=== PATIENT | female | born 1980 | race Caucasian/White ===

== ENCOUNTER → 2017-07-14 | Outpatient (CLI) | payer OTHER ==
[~2017-07-14] MED LIST: ACE3 PO; CETI10CA8 PO; DESO1TAB41 PO; KET10 PO; OMEP-218 PO; PREN-127 PO; VIT1CAPS11 PO
== END ==
LOC: LAB 11:34
PROVIDERS: ATTEND Obstetrics & Gynecology
DX: O09.513 Supervision of elderly primigravida, third trimester (principal)
CPT/HCPCS: 87081

== ENCOUNTER → 2017-07-27 | Outpatient (CLI) | payer OTHER ==
[~2017-07-27] MED LIST changes: +IBUP800T37 PO; +LOR5/325 PO
--- NOTE | 2017-07-27 21:02 | RADIOLOGY IMAGING REPORT ---
FACILITY: [facility] PATIENT NAME: Dayna Resendez : 1980 MR: [id number] V: [id number] EXAM DATE: ORDERING PHYSICIAN: EMMANUELLE ROWAN TECHNOLOGIST: [place] [facility] [place] Dayna Resendez : 1980 Visit/Account:[id number] Date of Sevice: 07/27/2017 EXAMINATION: Limited Transabdominal OB Ultrasound >14 wks Without Full Anatomic Survey 07/27/2017 3:57 PM HISTORY: Size less than dates, gestational hypertension vs preE COMPARISON: None available FINDINGS: Intrauterine gestations: one presentation: vertex heart rate: heart rate was not documented. Amniotic fluid index: 13.3 cm Largest amniotic fluid pocket 5.0 cm Placenta: Posterior without previa Uterus: gravid, otherwise normal Maternal adnexa: Not imaged Cervix: Grossly closed but not well seen. Transvaginal imaging was not done. Gestational Parameters: BPD: 9.6 cm 39 weeks 1 day HC: 34.3 cm 39 weeks 5 days AC: 34.4 cm 38 weeks 2 days FL: 7.6 cm 38 weeks 6 days Average ultrasound age (AUA): 39 weeks 0 days Estimated gestational age by LMP: 39 weeks 2 days Estimated weight (EFW): 3547 grams +/- 518 grams EFW for LMP percentile: 55 Anatomic Survey: Anatomic survey was not performed. IMPRESSION: 1. Single viable IUP in vertex presentation. EGA by ultrasound is 39 weeks 0 days (OLIVER 08/03/2017) whi ch correlates within 2 days of expected clinical dates. 2. heart rate was not documented although cardiac activity is noted by the technologist. If desired, we would be happy to provide addendum imaging to document heart rate. Report Dictated By: Oneal Barker MD at 07/27/2017 8:54 PM Report E-Signed By: Oneal Barker MD at 07/27/2017 8:58 PM WSN:[id number]
== END ==
LOC: RAD 15:49
PROVIDERS: ATTEND Obstetrics & Gynecology
DX: Z02.9 Encounter for administrative examinations, unspecified (principal)
CPT/HCPCS: 76815

== ENCOUNTER → 2017-07-27 | Outpatient (CLI) | payer OTHER ==
[~2017-07-27] MED LIST changes: -IBUP800T37 PO; -LOR5/325 PO
== END ==
LOC: LAB 15:25
PROVIDERS: ATTEND Obstetrics & Gynecology
DX: O16.3 Unspecified maternal hypertension, third trimester (principal)
CPT/HCPCS: 82570; 84156

== ENCOUNTER 2017-07-28 09:36 | Inpatient (IN) | payer OTHER ==
[~2017-07-28] VITALS: Ht 142.2 cm; Wt 73.5 kg
[~2017-07-28 09:36] MED LIST changes: -LOR5/325 PO
[2017-07-28] MEDS ORDERED: ceFAZolin(*) 2GM/D5W 50ML 50 ML IVPB PRN (09:49)
[2017-07-28] MEDS ORDERED: FAMOTIDINE(*) 20MG/50ML PREMIX 50 ML IVPB PRN (09:49)
[2017-07-28] MEDS ORDERED: FLUSH 10 ML SYR IVP PRN (09:50)
[2017-07-28] MEDS ORDERED: fentaNYL CITR 100 MCG/2 ML AMP IVP PRN (09:50)
[2017-07-28] MEDS ORDERED: LIDOCAINE 1% LOCAL 300 MG/30ML INJ PRN (09:50)
[2017-07-28] MEDS ORDERED: TERBUTALINE SULF 1 MG/ML VIAL SUBQ PRN (09:50)
[2017-07-28] MEDS ORDERED: BUPIVACAINE 0.5% INJ 30ML VIAL EPI PRN (10:00)
[2017-07-28] MEDS ORDERED: LIDO/EPI 2% MPF 1:200,000 20ML EPI PRN (10:00)
[2017-07-28] MEDS ORDERED: FENTANYL/ROPIVACAINE 100 ML BAG EPI PRN (10:00)
[2017-07-28] MEDS ORDERED: fentaNYL CITR 100 MCG/2 ML AMP IT PRN (10:00)
[2017-07-28] MEDS ORDERED: LIDOCAINE/PF 2% 200MG/10ML AMP 200 MG/10 ML AMPUL EPI PRN (10:00)
[2017-07-28] MEDS ORDERED: BUPIVACAINE 0.25% MPF INJ EPI PRN (10:00)
[2017-07-28] MEDS ORDERED: ePHEDrine 25 MG/5 ML DISP.SYR IVP PRN (10:00)
[2017-07-28 10:35] VITALS: BP 123/76; Ht 142.2 cm; Wt 73.5 kg
[2017-07-28] MEDS: MISOPROSTOL 25 MCG CAP PV PRN ×2 (10:49→15:15)
[2017-07-28 10:50] LABS: PLATELET COUNT, AUTOMATED 175 K/uL (150-450)
--- NOTE | 2017-07-28 13:08 | History & Physical ---
History of Present Illness EDC per LMP: Aug 01, 2017 Estimated Gestational Age: 39.3 Chief Complaint Induction for preeclampsia History of Present Illness 37-year-old at 39w3d presents for induction of labor due to preeclampsia without severe features. She denies any preeclampsia symptoms. She developed elevated blood pressure yesterday, and this is confirmed this morning. She is therefore admitted for induction of labor with cervical ripening. Her care is by IMG. She is otherwise c/b AMA, uterine fibroid and Rh negative. She is GBS negative. History Patient's Blood Type: O Negative Rubella Status: Immune Group B Strep Screen: Negative Obstetrical History: Primip Past Medical History: PMH: Eosinophilic esophagitis PSH: [place] tooth,endoscopy x 5, umbilical hernia repair Allergies: Uncoded Allergies: HAYFEVER (Allergy, Unknown, 07/14/17) Social History: No T/E/D. . Family History: FH: arrhythmia FATHER, Age:69 FH: cleft lip BROTHER OR SISTER Hypoglycemia MOTHER, Age:74 Med Rec Home Meds Reported Medications Vit A & D3 In Cod Liver Oil (COD LIVER OIL SOFTGEL) 1 Each Capsule, 1 EACH PO, CAPSULE 07/14/17 Cetirizine Hcl (ZYRTEC) 10 Mg Capsule, 10 MG PO QDAY, CAPSULE 07/14/17 Vits W-Ca,Fe,Fa(<1MG) ( VITAMINS) 1 Each Tablet, 1 EACH PO DAILY, TAB 07/14/17 Review of Systems Constitutional: No Fever Neurological: No Syncope Eyes: No Vision Change Cardiovascular: No Chest Pain Respiratory: No Shortness of Breath, No Cough Gastrointestinal: No Nausea, No Vomiting, No Diarrhea Genitourinary: No Dysuria Musculoskeletal: No Pain Psychiatric: No Depression, No Anxiety Exam General Exam Vital Signs Vital Signs Date Time Temp Pulse Resp B/P (MAP) Pulse Ox O2 Delivery O2 Flow Rate FiO2 07/28/17 10:35 98.6 74 18 123/76 (92) General Apperance: Alert/Awake/No Acute Distress Neuro: No Gross deficits Eyes: Normal Extraocular Movement & Vison Cardiovascular: Regular Rate and Rhythm Respiratory: No Respiratory Distress, Clear to Auscultation Abdomen: Gravid - Non-Tender : Normal Musculoskeletal: No Weakness/Pain Extremities: No Cyanosis,Clubbing or Edema Integumentary: Skin Intact without Lesions or Rash Psychological: Alert & Oriented X3, Appropriate Mood & Affect Cervical Dialation: 0 Cervical Effacement (%): 75 Cervical Consistency: Firm Cervical Position: Posterior Station: 0 Presentation: Vertex Uterine Contractions(Q min): 0 Fetus FHT Category: I Medical Decision Making Data Points Result Diagram: 07/28/17 1040 07/28/17 1040 Pre-Admit Course Medical Record Review: Yes VTE Prophylasis: Adult Deep Vein Thrombosis/Pulmonary: No Pharmacological Contraindicati: Pt at Low Risk for VTE Mechanical Contraindications: Pt at Low Risk for VTE Assessment and Plan Problems: (1) Preeclampsia Assessment & Plan: No severe features, but diagnosed by Pr:Cr = 0.5 which is much elevated compared to yesterday. Cytotec ripening. (2) Rh negative status during Assessment & Plan: PP evaluation. Problem Qualifiers (1) Preeclampsia: Trimester: third trimester Qualified Codes: O14.93 - Unspecified pre- eclampsia, third trimester (2) Rh negative status during : Trimester: third trimester Qualified Codes: O09.893 - Supervision of other high risk pregnancies, third trimester; Z67.91 - Unspecified blood type, rh negative EMMANUELLE ROWAN MD Jul 28, 2017 13:08
[2017-07-28] MEDS ORDERED: EPIDURAL KEYS XX PRN (16:00)
--- NOTE | 2017-07-28 16:12 | Labor Progress Note ---
Labor Subjective Progress Notes Subjective Pt is sleeping soundly right now. Wasn't feeling much for contractions all day. Labor Objective Vital Signs Vital Signs Date Time Temp Pulse Resp B/P (MAP) Pulse Ox O2 Delivery O2 Flow Rate FiO2 07/28/17 10:35 98.6 74 18 123/76 (92) Cervical Dialation: 0 Cervical Effacement (%): 75 Cervical Consistency: Moderate Cervical Position: Posterior Station: 0 Presentation: Vertex Uterine Contractions(Q min): 0 Fetus FHT Category: I General Exam General Appearance: Other (Asleep) Other Result Diagram: 07/28/17 1040 07/28/17 1040 Assessment and Plan Problems: (1) Preeclampsia Assessment & Plan: BP is stable. She has received her second dose of vaginal cytotec. Plan to evaluate and consider lopes bulb versus pitocin after this dose. (2) Rh negative status during Assessment & Plan: PP evaluation. Problem Qualifiers (1) Preeclampsia: Trimester: third trimester Qualified Codes: O14.93 - Unspecified pre- eclampsia, third trimester (2) Rh negative status during : Trimester: third trimester Qualified Codes: O09.893 - Supervision of other high risk pregnancies, third trimester; Z67.91 - Unspecified blood type, rh negative EMMANUELLE ROWNA MD Jul 28, 2017 16:12
[2017-07-28] MEDS ORDERED: OXYTOCIN 30 UNIT/D5LR 500 ML 500 ML IV PRN (19:21)
[2017-07-28] MEDS ORDERED: CALCIUM CARBONATE 500 MG CHEW PO PRN (19:25)
--- NOTE | 2017-07-28 19:30 | Labor Progress Note ---
Labor Subjective Progress Notes Subjective Pt is relatively comfortable. Only occasional cramping. Labor Objective Vital Signs Vital Signs Date Time Temp Pulse Resp B/P (MAP) Pulse Ox O2 Delivery O2 Flow Rate FiO2 07/28/17 10:35 98.6 74 18 123/76 (92) Cervical Dialation: 1 Cervical Effacement (%): 75 Cervical Consistency: Moderate Cervical Position: Posterior Station: 0 Presentation: Vertex Uterine Contractions(Q min): 4 Uterine Contraction Strength: Mild UC Resting Tone: Soft Fetus FHT Category: I General Exam General Appearance: Alert/Awake/No Acute Distress Respiratory: No Respiratory Distress : Normal Extremities: No Cyanosis,Clubbing or Edema Integumentary: Skin Intact without Lesions or Rash Psychological: Alert & Oriented X3, Appropriate Mood & Affect Other Result Diagram: 07/28/17 1040 07/28/17 1040 Assessment and Plan Problems: (1) Preeclampsia Assessment & Plan: Pt is still not very favorable, but has received two doses of misoprostol. Will transition to low dose pitocin and re-evaluate in 4 hours. (2) Rh negative status during Assessment & Plan: PP evaluation. Problem Qualifiers (1) Preeclampsia: Trimester: third trimester Qualified Codes: O14.93 - Unspecified pre- eclampsia, third trimester (2) Rh negative status during : Trimester: third trimester Qualified Codes: O09.893 - Supervision of other high risk pregnancies, third trimester; Z67.91 - Unspecified blood type, rh negative EMMANUELLE ROWAN MD Jul 28, 2017 19:30
[2017-07-28] MEDS: OXYTOCIN 30 UNIT/D5LR 500 ML 500 ML IV PRN (19:53)
[2017-07-28] MEDS: LR(*) 1000 ML BAG 1,000 ML IV SCH (19:55)
[2017-07-29] MEDS: LR(*) 1000 ML BAG 1,000 ML IV SCH ×2 (00:43→16:09)
--- NOTE | 2017-07-29 05:05 | Labor Progress Note ---
Labor Subjective Progress Notes Subjective Pt is doing well. Some rest overnight. She felt off and on contractions. +FM. Labor Objective Vital Signs Vital Signs Date Time Temp Pulse Resp B/P (MAP) Pulse Ox O2 Delivery O2 Flow Rate FiO2 07/28/17 10:35 98.6 74 18 123/76 (92) Cervical Dialation: 2 Cervical Effacement (%): 70 Cervical Consistency: Soft Cervical Position: Posterior Station: 0 Presentation: Vertex Uterine Contractions(Q min): 5 Uterine Contraction Strength: Mild UC Resting Tone: Soft Fetus FHT Category: I (She had two runs of decelerations overnight (one at 2100 due to tachysystole, one at midnight with increased pitocin)) General Exam General Appearance: Alert/Awake/No Acute Distress Respiratory: No Respiratory Distress Abdomen: Gravid - Non-Tender : Normal Musculoskeletal: No Weakness/Pain Extremities: No Cyanosis,Clubbing or Edema Integumentary: Skin Intact without Lesions or Rash Psychological: Alert & Oriented X3, Appropriate Mood & Affect Other Result Diagram: 07/28/17 1040 07/28/17 1040 Assessment and Plan Problems: (1) Preeclampsia Assessment & Plan: Courtney score is 7. I would prefer to have her cervix more mid position prior to initiating induction with higher dose pitocin. Membrane stripping performed with attempt to do some manual stretching of the cervix. The patient tolerated this well. Will stop pitocin for 4 hours to let receptors rest and to see what response we get from membrane stripping. Will re -evaluate and hopefully initiate pitocin protocol for induction at that time. In the meantime, she will ambulate and get some fresh air. We discussed the two episodes of decelerations, which were late decelerations. We discussed the implications of seeing these early on. Will monitor very closely once we start the pitocin again. (2) Rh negative status during Problem Qualifiers (1) Preeclampsia: Trimester: third trimester Qualified Codes: O14.93 - Unspecified pre- eclampsia, third trimester (2) Rh negative status during : Trimester: third trimester Qualified Codes: O09.893 - Supervision of other high risk pregnancies, third trimester; Z67.91 - Unspecified blood type, rh negative EMMANUELLE ROWAN MD Jul 29, 2017 05:05
--- NOTE | 2017-07-29 09:41 | Labor Progress Note ---
Labor Subjective Progress Notes Subjective Pt is rarely feeling UCx without pitocin. +FM. No preeclampsia symptoms. Labor Objective Vital Signs Vital Signs Date Time Temp Pulse Resp B/P (MAP) Pulse Ox O2 Delivery O2 Flow Rate FiO2 07/28/17 10:35 98.6 74 18 123/76 (92) Cervical Dialation: 2 Cervical Effacement (%): 70 Cervical Consistency: Soft Cervical Position: Posterior Station: 0 Presentation: Vertex Uterine Contractions(Q min): 10 Fetus FHT Category: I General Exam General Appearance: Alert/Awake/No Acute Distress Respiratory: No Respiratory Distress Abdomen: Gravid - Non-Tender : Normal Musculoskeletal: No Weakness/Pain Extremities: No Cyanosis,Clubbing or Edema Integumentary: Skin Intact without Lesions or Rash Psychological: Alert & Oriented X3, Appropriate Mood & Affect Other Result Diagram: 07/29/1735 07/29/1735 Assessment and Plan Problems: (1) Preeclampsia Assessment & Plan: Courtney score is 7. I would prefer to have her cervix more mid position prior to initiating induction with higher dose pitocin. Membrane stripping performed with attempt to do some manual stretching of the cervix. No significant change since that time. Will restart low-dose pitocin and re- evaluate in 4 hours. (2) Rh negative status during Assessment & Plan: Rhophylac evaluation PP. Problem Qualifiers (1) Preeclampsia: Trimester: third trimester Qualified Codes: O14.93 - Unspecified pre- eclampsia, third trimester (2) Rh negative status during : Trimester: third trimester Qualified Codes: O09.893 - Supervision of other high risk pregnancies, third trimester; Z67.91 - Unspecified blood type, rh negative EMMANUELLE ROWAN MD Jul 29, 2017 09:41
[2017-07-29] MEDS ORDERED: OXYTOCIN 30 UNIT/D5LR 500 ML 500 ML IV PRN (13:55)
--- NOTE | 2017-07-29 19:40 | Labor Progress Note ---
Labor Subjective Progress Notes Subjective Pt is feeling more pain with contractions. +FM but decreased recently. No preeclampsia symptoms. Labor Objective Vital Signs Vital Signs Date Time Temp Pulse Resp B/P (MAP) Pulse Ox O2 Delivery O2 Flow Rate FiO2 07/28/17 10:35 98.6 74 18 123/76 (92) Cervical Dialation: 2 Cervical Effacement (%): 75 Cervical Consistency: Moderate Cervical Position: Posterior Station: 0 Presentation: Vertex Uterine Contractions(Q min): 3 Uterine Contraction Strength: Moderate UC Resting Tone: Soft Fetus FHT Category: I (Runs of decreased variability) General Exam General Appearance: Alert/Awake/No Acute Distress Respiratory: No Respiratory Distress Abdomen: Gravid - Non-Tender : Normal Extremities: No Cyanosis,Clubbing or Edema Integumentary: Skin Intact without Lesions or Rash Psychological: Alert & Oriented X3, Appropriate Mood & Affect Other Result Diagram: 07/29/1735 07/29/1735 Assessment and Plan Problems: (1) Preeclampsia Assessment & Plan: Still minimal progress with cervical change. Refuses lopes bulb at this time. Will continue with pitocin as is. Plan to stop for a break from 2300 to the AM. Will recheck labs in the AM and go from there. If worsening status, will plan delivery. Discussed indications and expectations for this. (2) Rh negative status during Assessment & Plan: Rhophylac evaluation PP. Problem Qualifiers (1) Preeclampsia: Trimester: third trimester Qualified Codes: O14.93 - Unspecified pre- eclampsia, third trimester (2) Rh negative status during : Trimester: third trimester Qualified Codes: O09.893 - Supervision of other high risk pregnancies, third trimester; Z67.91 - Unspecified blood type, rh negative EMMANUELLE ROWAN MD Jul 29, 2017 19:40
[2017-07-30] MEDS: LR(*) 1000 ML BAG 1,000 ML IV SCH ×3 (00:50→13:25)
[2017-07-30] MEDS ORDERED: OXYTOCIN 30 UNIT/D5LR 500 ML 500 ML IV PRN ×2 (05:00→05:44)
[2017-07-30] MEDS: OXYTOCIN 30 UNIT/D5LR 500 ML 500 ML IV PRN (05:07)
--- NOTE | 2017-07-30 07:30 | Labor Progress Note ---
Labor Subjective Progress Notes Subjective Rested overnight after SROM occurred. Contractions stopped with pitocin stopped. +FM. No preeclampsia symptoms. Labor Objective Vital Signs Vital Signs Date Time Temp Pulse Resp B/P (MAP) Pulse Ox O2 Delivery O2 Flow Rate FiO2 07/28/17 10:35 98.6 74 18 123/76 (92) Cervical Dialation: 2 Cervical Effacement (%): 80 Cervical Consistency: Moderate Cervical Position: Posterior Station: 0 Presentation: Vertex Uterine Contractions(Q min): 6 Uterine Contraction Strength: Mild UC Resting Tone: Soft Fetus FHT Category: I General Exam General Appearance: Alert/Awake/No Acute Distress Respiratory: No Respiratory Distress Abdomen: Gravid - Non-Tender : Normal Musculoskeletal: No Weakness/Pain Extremities: No Cyanosis,Clubbing or Edema Integumentary: Skin Intact without Lesions or Rash Psychological: Alert & Oriented X3, Appropriate Mood & Affect Other Result Diagram: 07/30/17 0503 07/30/17 0503 Assessment and Plan Problems: (1) Preeclampsia Assessment & Plan: Pt is more favorable, in that the cervix is closer to mid position than before. It has also effaced somewhat. She SROM'd at 2300hrs last night. Will now initiate pitocin per protocol for induction. Monitor FHT and for cervical change. (2) Rh negative status during Assessment & Plan: Rhophylac evaluation PP. Problem Qualifiers (1) Preeclampsia: Trimester: third trimester Qualified Codes: O14.93 - Unspecified pre- eclampsia, third trimester (2) Rh negative status during : Trimester: third trimester Qualified Codes: O09.893 - Supervision of other high risk pregnancies, third trimester; Z67.91 - Unspecified blood type, rh negative EMMNAUELLE ROWAN MD Jul 30, 2017 07:30
--- NOTE | 2017-07-30 13:29 | Anesthesia OB Pre-Anes Eval ---
History of Present Illness Anesthesia Start Date: Jul 30, 2017 Anesthesia Start Time: 12:45 OB Anesthesia Diagnosis: induction - medical Current Complication: other (pre eclampsia) EDC: Aug 01, 2017 : 1 Para: 0 Vital Signs: Vital Signs 07/28/17 10:35 Temp 98.6 Pulse 74 Resp 18 B/P (MAP) 123/76 (92) Pain Ratin Heart Tones: 126 Result Diagram: 07/30/17 0503 07/30/17 0503 Height (Inches): 56.00 Weight (Pounds): 162 BMI Calculated: 36.32 Past Medical History Medical History: no pertinent history Surgical History: other Previous Anesthesia: general, other Attended Childbirth Classes?: Yes Hx Anesthesia Reactions: No Hx Family Anesthesia Reaction: No Current Medications: pitocin Home Meds Reported Medications Vit A & D3 In Cod Liver Oil (COD LIVER OIL SOFTGEL) 1 Each Capsule, 1 EACH PO, CAPSULE 07/14/17 Cetirizine Hcl (ZYRTEC) 10 Mg Capsule, 10 MG PO QDAY, CAPSULE 07/14/17 Vits W-Ca,Fe,Fa(<1MG) ( VITAMINS) 1 Each Tablet, 1 EACH PO DAILY, TAB 07/14/17 Allergies: Uncoded Allergies: HAYFEVER (Allergy, Unknown, 07/14/17) Anesthesia OB ROS Neurological: No migraines/headaches, No seizures, No neuropathy, No other ENT: Denies Tooth caps, Denies Loose teeth, Denies Chipped teeth, Denies Dentures, Denies Bridges, Denies Retainers, Denies Veneers, Denies Implants, Denies Tongue ring, Denies Other Pulmonary: No asthma, No smoker (pks/day/yrs), No other Airway Class: ll Cardiovascular ROS: No edema, No arrhythmia, No other GI ROS: clear liquids Last Solids Date: Jul 29, 2017 Last Solids Time: 17:30 ROS: No Herpes, No STD(s), No Liver Disease, No Renal Disease, No Other Endocrine ROS: No diabetes, No gestational diabetes, No thyroid disorder, No other Musculoskeletal ROS: No low back pain, No low back injury, No scoliosis, No other ASA Classification: 2 Assessment and Plan Anesthesia Plan: BRENDA TRAN CRNA Jul 30, 2017 13:29
--- NOTE | 2017-07-30 13:32 | Procedure Note ---
Anesthetic Placement Note Anesthesia Plan: CSE Permit for Anesthesia Signed: Yes Anesthesia Technique: Patient Sitting Anesthesia Prep: Chlorhexidine Interspace: L 3-4 Local Anesthetic: 1% Lidocaine Amount Local - cc's: 3 Anesthesia Needle: 17g Touhy/Schliff Anesthesia Attempts: 1 Loss of Resistance: Normal Saline Depth of ANTONIO (cm): 5 Intrathecal Needle: 27 Gauge Pencan Cerebral Spinal Fluid: Yes, Clear Catheter Insertion (cm): 9 (at) Catheter Type: Solis - Spring Wound Epidural Dressing: Tegaderm, Tape Anesthesia Tray: Lot Number ([id number]), Expiration Date (08/31), Reference Number ([id number]) Anesthesia Medications: Intrathecal Dose: mcg Fentanyl (10), mg Marcaine MPF (2.5), Time (1258) Epidural Test Dose: 1.5 Lido/Epi (1:200,000), Dose - mL (3), Time (1301), Negative Epidural Infusion: 0.2% Ropivicaine, With Fentanyl 2mcg/ml, Start Time: (1315) Epidural Pump Setting: Bolus Dose - mL (6), Lockout - Minutes (20), Maintenance Rate - mL/hr (6), Maximum per Hour - mL (24) Complications: None BRENDA MUÑOZ CRNA Jul 30, 2017 13:32
--- NOTE | 2017-07-30 16:38 | Anesthesia Progress Note ---
Progress/Maintenance Anesthesia Note Date: Jul 30, 2017 Anesthesia Note Time: 16:00 Pain Intensity: 0 Pump: On Pump Rate (ML/HR): 6 Motor Level: Bending Knees-Bilateral Dilatation: 9 Position: Right BRENDA MUÑOZ CRNA Jul 30, 2017 16:38
--- NOTE | 2017-07-30 17:22 | Labor Progress Note ---
Labor Subjective Progress Notes Subjective Pt is comfortable with epidural. No preeclampsia symptoms. Labor Objective Vital Signs Vital Signs Date Time Temp Pulse Resp B/P (MAP) Pulse Ox O2 Delivery O2 Flow Rate FiO2 07/28/17 10:35 98.6 74 18 123/76 (92) Vaginal Discharge/Fluid?: Clear Fluid Cervical Dialation: 10 Cervical Effacement (%): 100 Cervical Consistency: Soft Cervical Position: Mid Station: -2 Presentation: Vertex Uterine Contractions(Q min): 3 Uterine Contraction Strength: Strong Fetus Heart Tones: 135 Heart Tone Variabilty: Moderate FHT Decelerations: Early, Late FHT Category: II General Exam General Appearance: Alert/Awake/No Acute Distress Respiratory: No Respiratory Distress Integumentary: Skin Intact without Lesions or Rash Psychological: Alert & Oriented X3, Appropriate Mood & Affect Other Result Diagram: 07/30/17 0503 07/30/17 0503 Assessment and Plan Problems: (1) Preeclampsia Assessment & Plan: Pt received epidural for pain control. She has now progressed to complete and is pushing. Anticipate . Baby has decelerations with pushing during contractions. Will consider operative delivery if she stops progressing, but so far she has good descent and is splitting the labia slightly with pushing. (2) Rh negative status during Assessment & Plan: Rhophylac evaluation PP. Problem Qualifiers (1) Preeclampsia: Trimester: third trimester Qualified Codes: O14.93 - Unspecified pre- eclampsia, third trimester (2) Rh negative status during : Trimester: third trimester Qualified Codes: O09.893 - Supervision of other high risk pregnancies, third trimester; Z67.91 - Unspecified blood type, rh negative EMMANUELLE ROWAN MD Jul 30, 2017 17:22
--- NOTE | 2017-07-30 18:00 | Anesthesia Progress Note ---
Assessment and Plan Anesthesia Plan: CSE Anesthesia Stop Day: Jul 30, 2017 Anesthesia Stop Time: 18:10 BRENDA MUÑOZ CRNA Jul 30, 2017 18:00
--- NOTE | 2017-07-30 18:17 | OB Delivery Note ---
Delivery Note Vaginal Delivery Type: Spont. Vaginal Delivery Delivery Date: Jul 30, 2017 Delivery Time: 17:49 Estimated Gestational Age(wks): 39.5 Length of Labor Stage I (hrs): 6 Length of Labor Stage II (hrs): 1.5 Labor Stage III (minutes): 11 Delivery Anesthesia: Epidural Sex: Male [place] Apgars: 1 Minute (9), 5 Minute (9) Repair Needed: Labial, 2nd Degree Estimated Blood Loss: 350 Notes: Induced for preeclampsia without severe features Regional Liaison in Attendence: EMMANUELLE Vidal MD Jul 30, 2017 18:16
[2017-07-30] MEDS ORDERED: LANOLIN OINT 7 GM TUBE TP PRN (18:20)
[2017-07-30] MEDS ORDERED: HYDROCORTISONE 2.5% CR 30GM TB PR PRN (18:20)
[2017-07-30] MEDS ORDERED: GLYCERIN/WITCH HAZEL LEAF 1 PK TP PRN (18:20)
[2017-07-30] MEDS ORDERED: MAGNESIUM HYDROXIDE* 30ML UDCP PO PRN (18:20)
[2017-07-30] MEDS ORDERED: ACETAMINOPHEN 325 MG TAB PO PRN (18:20)
[2017-07-30] MEDS ORDERED: IBUP800T37 PO (18:20)
[2017-07-30] MEDS ORDERED: APAP/HYDROCODONE 325/5 TAB PO PRN (18:20)
[2017-07-30] MEDS ORDERED: LOR5/325 PO (18:20)
[2017-07-30] MEDS ORDERED: BENZOCAINE 20% 60 ML BTL TP PRN (18:20)
[2017-07-30] MEDS: IBUPROFEN 800 MG TAB PO SCH (20:57)
[2017-07-30] MEDS: DOCUSATE CALCIUM 240 MG CAP PO SCH (20:57)
[2017-07-30] MEDS ORDERED: LR(*) 1000 ML BAG 1,000 ML ONE (21:36)
[2017-07-30 22:00] VITALS: BP 122/58
[2017-07-31 03:00] VITALS: BP 140/72
[2017-07-31 07:00] VITALS: BP 129/74
[2017-07-31] MEDS ORDERED: MEASLES,MUMP,RUBELLA VAC 0.5ML SUBQ ONE (09:00)
[2017-07-31] MEDS: DOCUSATE CALCIUM 240 MG CAP PO SCH ×3 (09:00→20:25)
[2017-07-31] MEDS ORDERED: DIPHTH/TETANUS/ACEL. PERTUSSIS IM ONLY ONE (09:00)
[2017-07-31] MEDS ORDERED: INFLUENZA VIRUS VAC 0.5 ML SYR IM ONLY ONE (09:00)
[2017-07-31 11:00] VITALS: BP 144/77
[2017-07-31] MEDS: IBUPROFEN 800 MG TAB PO SCH ×2 (13:00→21:30)
--- NOTE | 2017-07-31 13:21 | Anesthesia Post Eval Note ---
Anesthesia Post Eval Note Vital Signs 07/31/17 11:00 Temp 98.1 Pulse 83 Resp 18 B/P (MAP) 144/77 (99) Pulse Ox 96 O2 Delivery Room Air Pt able to participate in Eval: Yes Cardiovascular Status: Satisfactory Respiratory Status: Satisfactory Pain Managment: Satisfactory PO Nausea/Vomiting: Satisfactory Temperature Management: Satisfactory Mental Status: Satisfactory, Alert, Oriented X3 Post-Op Hydration Status: Satisfactory, Tolerating PO Well, Voiding w/o Difficulty Anesthesia Type: CSE BRENDA MUÑOZ CRNA Jul 31, 2017 13:20
--- NOTE | 2017-07-31 15:42 | OB/GYN Progress Note ---
OB Subjective Progress Notes Subjective Doing well. Pain controlled with oral medications. Tolerating regular diet. Ambulating. Voiding. Normal lochia. No preeclampsia symptoms. OB Objective Physical Exam Vital Signs Date Time Temp Pulse Resp B/P (MAP) Pulse Ox O2 Delivery O2 Flow Rate FiO2 07/31/17 11:00 98.1 83 18 144/77 (99) 96 Room Air Intake and Output 08/01/17 06:59 Intake Total 0 ml Output Total 900 ml Balance -900 ml Intake Oral 0 ml Output Urine Total 900 ml # Voids 1 General Appearance: Alert/Awake/No Acute Distress Neurological: No Gross deficits Eyes: Normal Extraocular Movement & Vison Cardiovascular: Normal Rhythm & Peripheral Pulses Respiratory: No Respiratory Distress, Clear to Auscultation Abdomen: Soft, Non-Tender, Non-Distended, Fundus Firm Musculoskeletal: No Weakness/Pain Extremities: No Cyanosis,Clubbing or Edema Integumentary: Skin Intact without Lesions or Rash Psychological: Alert & Oriented X3, Appropriate Mood & Affect Result Diagram: 07/31/17 0623 07/30/17 0503 Assessment and Plan Problems: (1) care and examination immediately after delivery Assessment & Plan: PPD#1 s/p . Doing well. Routine orders. Work on . Home tomorrow if all continues to go well. (2) Preeclampsia Assessment & Plan: BP are stable. Highest are low 140s systolic. Labs are stable. Continue to monitor for symptoms or BP increase. (3) Rh negative status during Assessment & Plan: Baby is O-negative. No rhophylac needed. Problem Qualifiers (1) Preeclampsia: Trimester: third trimester Qualified Codes: O14.93 - Unspecified pre- eclampsia, third trimester (2) Rh negative status during : Trimester: third trimester Qualified Codes: O09.893 - Supervision of other high risk pregnancies, third trimester; Z67.91 - Unspecified blood type, rh negative EMMANUELLE ROWAN MD Jul 31, 2017 15:42
[2017-07-31 15:50] VITALS: BP 140/86
[2017-07-31 19:30] VITALS: BP 135/78
[2017-08-01 08:05] VITALS: BP 129/77
--- NOTE | 2017-08-01 08:28 | OB/GYN Progress Note ---
OB Subjective Progress Notes Subjective Doing well. Pain controlled with oral medications. Tolerating regular diet. Ambulating. Voiding. Normal lochia. No preeclampsia symptoms. OB Objective Physical Exam Vital Signs Date Time Temp Pulse Resp B/P (MAP) Pulse Ox O2 Delivery O2 Flow Rate FiO2 08/01/17 04:00 16 08/01/17 02:00 Room Air 07/31/17 19:30 98.1 80 135/78 (97) 07/31/17 15:50 95 General Appearance: Alert/Awake/No Acute Distress Neurological: No Gross deficits Eyes: Normal Extraocular Movement & Vison Cardiovascular: Normal Rhythm & Peripheral Pulses Respiratory: No Respiratory Distress, Clear to Auscultation Abdomen: Soft, Non-Tender, Non-Distended, Fundus Firm Musculoskeletal: No Weakness/Pain Extremities: No Cyanosis,Clubbing or Edema Integumentary: Skin Intact without Lesions or Rash Psychological: Alert & Oriented X3, Appropriate Mood & Affect Result Diagram: 07/31/17 0623 07/30/17 0503 Assessment and Plan Problems: (1) care and examination immediately after delivery Assessment & Plan: PPD#2. Meeting milestones. Desires discharge to home today. Discussed routine expectations. Questions answered. Follow up in clinic in 1wk for BP check and 2wks for check. (2) Preeclampsia Assessment & Plan: BP are stable. Continue to monitor for symptoms or BP increase. (3) Rh negative status during Assessment & Plan: Baby is O-negative. No rhophylac needed. Problem Qualifiers (1) Preeclampsia: Trimester: third trimester Qualified Codes: O14.93 - Unspecified pre- eclampsia, third trimester (2) Rh negative status during : Trimester: third trimester Qualified Codes: O09.893 - Supervision of other high risk pregnancies, third trimester; Z67.91 - Unspecified blood type, rh negative EMMANUELLE ROWAN MD Aug 01, 2017 08:28
--- NOTE | 2017-08-01 08:30 | OB/GYN Discharge Summary ---
Discharge Summary Reason for Hosp/Final Diag: (1) care and examination immediately after delivery Hospital Course & Plan: PPD#2. Meeting milestones. Desires discharge to home today. Discussed routine expectations. Questions answered. Follow up in clinic in 1wk for BP check and 2wks for check. (2) Preeclampsia Hospital Course & Plan: BP are stable. Continue to monitor for symptoms or BP increase. (3) Rh negative status during Hospital Course & Plan: Baby is O-negative. No rhophylac needed. Lates Vital Signs Vital Signs Date Time Temp Pulse Resp B/P (MAP) Pulse Ox O2 Delivery O2 Flow Rate FiO2 08/01/17 04:00 16 08/01/17 02:00 Room Air 07/31/17 19:30 98.1 80 135/78 (97) 07/31/17 15:50 95 Weight (Pounds): 162 Result Diagram: 07/31/17 0623 07/30/17 0503 Condition: Improved Discharge: Home, Self Senior Living Meds Active Scripts Hydrocodone Bit/Acetaminophen (HYDROCODON-ACETAMINOPHEN 5-325) 1 Each Tablet, 1- 2 EACH PO Q4-6H Y for pain, #30 TAB 0 Refills Prov:EMMANUELLE CAM MD 07/30/17 Reported Medications Vit A & D3 In Cod Liver Oil (COD LIVER OIL SOFTGEL) 1 Each Capsule, 1 EACH PO, CAPSULE 07/14/17 Cetirizine Hcl (ZYRTEC) 10 Mg Capsule, 10 MG PO QDAY, CAPSULE 07/14/17 Vits W-Ca,Fe,Fa(<1MG) ( VITAMINS) 1 Each Tablet, 1 EACH PO DAILY, TAB 07/14/17 Follow up Referrals: COMPUTER REPAIRER - In Two Weeks @ [facility] [place] with Emmanuelle Cam Md Discharge Diet: As Tolerates Discharge Activity: Pelvic Rest Problem Qualifiers (1) Preeclampsia: Trimester: third trimester Qualified Codes: O14.93 - Unspecified pre- eclampsia, third trimester (2) Rh negative status during : Trimester: third trimester Qualified Codes: O09.893 - Supervision of other high risk pregnancies, third trimester; Z67.91 - Unspecified blood type, rh negative EMMANUELLE CAM MD Aug 01, 2017 08:30
[2017-08-01] MEDS: IBUPROFEN 800 MG TAB PO SCH (13:00)
== END 2017-08-01 12:55 | disposition home or self-care (01) | DRG 775 ==
LOC: UNDOADMIN 09:36 → OB 09:36
PROVIDERS: ADMIT Obstetrics & Gynecology; ATTEND Obstetrics & Gynecology
PROC: 3E033VJ Introduction of Other Hormone into Peripheral Vein, Percutaneous Approach (ICD-10-PCS; 2017-07-28)
PROC: 10907ZC Drainage of Amniotic Fluid, Therapeutic from Products of Conception, Via Natural or Artificial Opening (ICD-10-PCS; 2017-07-29)
PROC: 10E0XZZ Delivery of Products of Conception, External Approach (ICD-10-PCS; principal; 2017-07-30)
PROC: 0KQM0ZZ Repair Perineum Muscle, Open Approach (ICD-10-PCS; 2017-07-30)
DX: O14.94 Unspecified pre-eclampsia, complicating childbirth (principal); O36.0130 Maternal care for anti-D [Rh] antibodies, third trimester, not applicable or unspecified; O76 Abnormality in fetal heart rate and rhythm complicating labor and delivery; O70.1 Second degree perineal laceration during delivery; Z37.0 Single live birth; Z3A.39 39 weeks gestation of pregnancy; Z62.810 Personal history of physical and sexual abuse in childhood
CPT/HCPCS: 36415; 82040; 82247; 82310; 82374; 82435; 82565; 82947; 84075; 84132; 84155; 84295; 84450; 84460; 84520; 85025; 85027; 86850; 86870; 86900; 86901; J2590; J3010; J7120; S0020

== ENCOUNTER → 2017-07-28 | Outpatient (CLI) | payer OTHER ==
[~2017-07-28] MED LIST changes: +LOR5/325 PO
== END ==
LOC: LAB 09:30
PROVIDERS: ATTEND Obstetrics & Gynecology
DX: Z33.1 Pregnant state, incidental (principal)
CPT/HCPCS: 82570; 84156